=== PATIENT | male | born 1970 | race Caucasian/White ===

== ENCOUNTER 2023-06-07 21:54 | Emergency (ER) | payer BC ==
[2023-06-07 22:39] LABS: BASOPHILS ABSOLUTE AUTO 0.1 x10-3/uL (0.0-0.3); EOSINOPHILS ABSOLUTE AUTO 0.1 x10-3/uL (0.0-0.6); EOSINOPHILS PERCENT AUTO 2.5 % (0.1-6.8); LYMPHOCYTES ABSOLUTE AUTO 0.7 x10-3/uL (0.5-4.5); LYMPHOCYTES PERCENT AUTO 12.1 % (15.8-45.3); MEAN CORPUSCULAR HEMOGLOBIN 17.9 pg (27.0-33.3); MEAN CORPUSCULAR HGB CONC 29.6 g/dL (28.7-35.3); MEAN CORPUSCULAR VOLUME 60.4 fL (80.8-98.7); MEAN PLATELET VOLUME 8.9 fL (6.7-11.0); MONOCYTES ABSOLUTE AUTO 0.5 x10-3/uL (0.0-1.2); MONOCYTES PERCENT AUTO 8.3 % (5.5-15.2); NEUTROPHILS ABSOLUTE AUTO 4.2 x10-3/uL (1.7-6.9); NEUTROPHILS PERCENT AUTO 76.1 % (40.3-71.8); PLATELET COUNT,PLT 114 x10(3)uL (117-477); RED BLOOD CELL COUNT 2.22 x10(6)uL (3.90-5.90); RED CELL DISTRIBUTION WIDTH 20.1 % (12.4-15.0); WHITE BLOOD CELL COUNT,WBC 5.5 x10-3/uL (3.2-10.1)
[2023-06-07 22:42] LABS: BLOOD UREA NITROGEN,BUN 10 mg/dL (7-18); BUN/CREATININE RATIO 12.5 (9-20); CARBON DIOXIDE,CO2 27 mmol/L (21-32); CHLORIDE,CL 93 mmol/L (100-110); CREATININE 0.8 mg/dL (0.70-1.30); ESTIMATED GFR 105 mL/min (>60); GLUCOSE RANDOM 113 mg/dL (80-116); POTASSIUM,K 4.2 mmol/L (3.5-5.3); SODIUM,NA 129 mmol/L (135-145)
[2023-06-07] MEDS ORDERED: Albuterol/Ipratropium 3.0-0.5 MG/3 ML Neb Soln NEB ONE (22:47)
[2023-06-07 22:49] LABS: HEMATOCRIT 13.4 % (38.3-50.1)
[2023-06-07 22:53] LABS: A/G RATIO 0.7; ALANINE AMINOTRANSFERASE,ALT 33 U/L (12-36); ALBUMIN 3.3 g/dL (3.5-5.2); ALKALINE PHOSPHATASE 89 IU/L (56-112); ASPARTATE AMNIOTRANSFERASE,AST 28 IU/L (5-25); PROTEIN TOTAL,TP 7.8 g/dL (6.0-8.0)
[2023-06-07 22:54] LABS: TROPONIN I 13.9 pg/mL (4.0-60.3)
[2023-06-07 22:55] LABS: D-DIMER QUANTITATIVE 1.14 mg/LFEU (0.0-0.59); INR 1.13 (1.00-1.24); PROTHROMBIN TIME 11.6 sec (9.0-11.1)
[2023-06-07 23:05] LABS: BASE EXCESS VENOUS,POC 0 mmol/L (-2 - 3+); PCO2 VENOUS,POC 34 mmHg (41-51); PH VENOUS,POC 7.45 pH Units (7.32-7.43)
[2023-06-08] MEDS ORDERED: Iopamidol 755 Mg/ML 200 ML Bottle IV ONE (00:10)
[2023-06-08] MEDS ORDERED: amLODIPine 10 MG Tab ONE (00:45)
[2023-06-08] MEDS ORDERED: amLODIPine 10 MG Tab PO STA (00:50)
[2023-06-08] MEDS ORDERED: Albuterol/Ipratropium 3.0-0.5 MG/3 ML Neb Soln ONE (00:56)
[2023-06-08] MEDS: Sodium Chloride 0.9% 250 ML IV SCH ×2 (01:05→01:28)
[2023-06-08] MEDS ORDERED: Furosemide 20 MG/2 ML VIAL IVPUSH ONE (03:07)
[2023-06-08] MEDS ORDERED: Sodium Chloride 0.9% 250 ML IV SCH ×2 (03:15→12:00)
[2023-06-08] MEDS ORDERED: hydrALAZINE 20 MG/ML SDV IVPUSH ONE (08:10)
[2023-06-08] MEDS: Sodium Chloride 0.9% 10 ML Syringe FLUSH PRN ×2 (08:23→13:36)
[2023-06-08] MEDS ORDERED: Labetalol 20 MG/4 ML Syringe IVPUSH ONE (12:44)
[2023-06-08] MEDS ORDERED: Pantoprazole 40 MG Vial ONE (12:55)
[2023-06-08] MEDS ORDERED: Pantoprazole 40 MG Vial IVPUSH ONE (12:58)
[2023-06-09 11:11] LABS: IRON BIND.CAP.(TIBC) 546 ug/dL (250-450); IRON SATURATION 3 % (15-55); IRON, SERUM 15 ug/dL (38-169); UIBC 531 ug/dL (111-343)
== END 2023-06-08 15:10 ==
LOC: FB.ED 21:54
DX: D69.6 Thrombocytopenia, unspecified (principal); D64.9 Anemia, unspecified; E87.1 Hypo-osmolality and hyponatremia; E83.51 Hypocalcemia; I10 Essential (primary) hypertension; I16.9 Hypertensive crisis, unspecified; E66.9 Obesity, unspecified; Z86.16 Personal history of COVID-19; Z68.39 Body mass index [BMI] 39.0-39.9, adult
CPT/HCPCS: 36415; 36430; 71045; 71260; 74177; 80053; 82728; 83540; 83550; 83880; 84484; 85018; 85025; 85379; 85610; 85730; 86850; 86900; 86901; 86920; 86922; 93005; 93010; 94640; 96361; 96374; 96375; 99285; 99285-25; A9270-GY; C9113; J0360; J1940; J3490; J7050; J7620; P9016; Q9967